=== PATIENT | female | born 1930 | race Caucasian/White ===

== ENCOUNTER 2016-07-31 13:00 | Inpatient (IN) | payer MEDICARE, BC ==
[~2016-07-31] VITALS: Ht 170.2 cm; Wt 70.3 kg
[~2016-07-31 13:00] MED LIST: ACET-2605 PO; ESCI20TA PO; HYDR-3976 PO; LEVO750T21 PO; LORA2VIA32 PO; PANT40VI IV; RISP1SOL5 PO; Zolpidem Tartrate PO
[2016-07-31 13:21] LABS: BASOPHILS # (AUTO) 0.1 /CMM (0.0-0.2); BASOPHILS % (AUTO) 0.7 % (0.0-2.0); EOSINOPHILS # (AUTO) 0.3 /CMM (0.0-0.7); EOSINOPHILS % (AUTO) 3.5 % (0.0-6.0); HEMATOCRIT 44 % (33-45); HEMOGLOBIN 13.1 g/dL (11.5-14.8); LYMPHOCYTES # (AUTO) 1.8 /CMM (0.8-4.8); LYMPHOCYTES % (AUTO) 20.7 % (20.0-44.0); MEAN CORPUSCULAR HEMOGLOBIN 27 PG (26.0-33.0); MEAN CORPUSCULAR HGB CONC 30 g/dl (31.0-36.0); MEAN CORPUSCULAR VOLUME 89 fL (82-100); MONOCYTES # (AUTO) 0.7 /CMM (0.1-1.30); MONOCYTES % (AUTO) 8.5 % (2.0-12.0); NEUTROPHILS # (AUTO) 5.6 /CMM (1.8-8.9); NEUTROPHILS % (AUTO) 66.6 % (43.0-81.0); PLATELET COUNT (AUTO) 209 /CMM (150-450); RDW COEFFICIENT OF VARIATION 12.8 (11.5-15.0); RED BLOOD CELL COUNT(AUTO) 4.94 MIL/uL (4.0-5.2); WHITE BLOOD COUNT (AUTO) 8.5 K/uL (4.3-11.0)
--- NOTE | 2016-07-31 13:25 | NUR ---
PATIENT IS NON VERBAL, BIB RA S/P SYNCOPAL EPISODE AT [facility] TG=661 MG/DL IN THE FIELD. RESP IS EVEN AND UNLABORED WITH NAD NOTED. SKIN IS WARM AND NON DIAPHORETIC. PLACED ON MONITOR AND WILL CONTINUOUSLY MONITOR THE PATIENT. AWAITING MD FOR EVAL.
[2016-07-31 13:31] LABS: CALCIUM, SERUM 8.6 mg/dL (8.5-10.1); CARBON DIOXIDE 28 mmol/L (21-32); CHLORIDE 107 mmol/L (98-107); CREATININE 0.8 mg/dL (0.6-1.3); GLUCOSE 129 mg/dL (74-106); POTASSIUM 3.7 mmol/L (3.5-5.1); SODIUM SERUM 142 mmol/L (136-145); UREA NITROGEN, BLOOD 20 mg/dL (7-18)
[2016-07-31] MEDS ORDERED: GUAI100S11 PO (13:31)
[2016-07-31] MEDS ORDERED: POLY17PO4 PO (13:31)
[2016-07-31] MEDS ORDERED: ATRO2DRO4 SL (13:31)
[2016-07-31] MEDS ORDERED: PROC25SU2 RC (13:31)
[2016-07-31] MEDS ORDERED: ACET650S11 RC (13:31)
[2016-07-31] MEDS ORDERED: LOPE-156 PO (13:31)
[2016-07-31] MEDS ORDERED: CHOL100044 PO (13:31)
[2016-07-31] MEDS ORDERED: ESCI5SOL PO (13:31)
[2016-07-31] MEDS ORDERED: BISA10SU8 RC (13:31)
[2016-07-31] MEDS ORDERED: MORP100S3 SL (13:31)
[2016-07-31 13:35] LABS: INR 0.99 (0.87-1.13); PROTHROMBIN TIME 10.3 SECS (9.5-12.7)
[2016-07-31 13:37] LABS: ALANINE AMINOTRANSFERASE 19 U/L (12-78); ALBUMIN 2.5 g/dL (3.4-5.0); ALKALINE PHOSPHATASE 78 U/L (46-116); ASPARTATE AMINOTRANSFERASE 14 U/L (15-37); BILIRUBIN,DIRECT 0.1 mg/dL (0.0-0.2); BILIRUBIN,TOTAL 0.3 mg/dL (0.2-1.0); TOTAL PROTEIN, SERUM 6.1 g/dL (6.4-8.2)
[2016-07-31 13:39] LABS: TROPONIN I < 0.017 ng/mL (0.00-0.056)
[2016-07-31] MEDS ORDERED: IV NS 0.9% 250 ML IV ONE (14:12)
[2016-07-31 14:17] LABS: APPEARANCE,URINE Slightly Cloudy (CLEAR); BILIRUBIN,URINE Negative (NEGATIVE); BLOOD, URINE Trace-intact Ery/uL (NEGATIVE); COLOR,URINE Yellow (YELLOW); KETONES,URINE Negative (NEGATIVE); LEUKOCYTE ESTERASE ,URINE Small (NEGATIVE); NITRITE, URINE Positive (NEGATIVE); PROTEIN,URINE Negative (NEGATIVE); UGLUCOSE Negative (NEGATIVE)
[2016-07-31 14:21] LABS: RBC,URINE 0-2 /HPF (0-2); WBC,URINE 20-40 /HPF (0-3)
[2016-07-31 14:22] LABS: ADD URINE CULTURE YES; BACTERIA,URINE Moderate /HPF (None Seen); SQUAMOUS EPITHELIAL CELL,UR Few /HPF (None Seen)
[2016-07-31] MEDS ORDERED: IV NS 0.9% 250 ML BAG IV ONE (14:30)
--- NOTE | 2016-07-31 14:30 | NUR ---
Patient is resting comfortably in bed with eyes closed. Easily aroused. VSS
--- NOTE | 2016-07-31 15:16 | NUR ---
REPORT GIVEN TO JADON CASTRO FOR ERICA TELE [id number]
[2016-07-31 16:00] VITALS: BP 125/79
--- NOTE | 2016-07-31 16:10 | NUR ---
TELE/RN AM NOTE ADMITTED 86 Y/O FEMALE, FROM ER, VIA GURNEY TO RM # [id number], WITH ADMISSION DX; SYNCOPE, HX: GERD, HTN, DEMENTIA, UNDER CARE OF DR. VILLANUEVA. PATIENT IS AWAKE, ALERT X1 TO NAME, WITH UNCLEAR SPEECH. NO SOB, NO S/SX OF PAIN, OR DISTRESS, OXYGEN IN PLACE DELIVERING 2L/M VIA N/C, TOLERATING WELL. IV LINE ON LEFT HAND IS INTACT, PATENT. PATIENT IS BED BOUND ALMOST 2 YEARS AND [facility] RESIDENT. HAS CONSERVATOR INVOLVED IN HER CASE. ADMISSION HISTORY OBTAINED FROM [employer] [employer] (LEILA). FULL BODY ASSESSMENT DONE, NOTED WITH LEFT BUTTOCK SCRATCH LIKE REDNESS, NO BLEEDING, AND MULTIPLE DEFUSED BODY MOLES, DRY, INTACT. PATIENT DENIES PAIN, INCONTINENT B/B. ORIENTED PATIENT THE ROOM, CALL LIGHT SYSTEM, NEEDS MET, KEPT CLEAN, COMFORTABLE, HOB ELEVATE, BED IN LOW POSITION, 2SR UP FOR SAFETY, WITH CALL LIGHT WITHIN EASY REACH, WILL CONTINUE TO MONITOR PATIENT ACCORDINGLY.
[2016-07-31] MEDS ORDERED: ACETAMINOPHEN 325 MG TABLET PO PRN (17:30)
[2016-07-31] MEDS ORDERED: HYDROCODONE/APAP 5/325MG 1 EACH TABLET PO PRN (17:30)
[2016-07-31] MEDS ORDERED: ONDANSETRON HCL/PF 4 MG/2 ML VIAL IVP PRN (17:30)
[2016-07-31] MEDS ORDERED: MAG HYDROX/AL HYDROX/SIMETH 30 ML UDC PO PRN (17:30)
--- NOTE | 2016-07-31 19:30 | NUR ---
HOUSING COURT JUDGE NOTE: PATIENT RESTING IN BED, NO ACUTE DISTRESS NOTED. BREATHING EVEN AND UNLABORED, NO SOB NOTED. TELE READING SR 60. IV TO LEFT HAND IN PLACE. BED LOCKED AND IN LOWEST POSITION, CALL LIGHT IN REACH. WILL CONTINUE TO MONITOR.
[2016-07-31 20:00] VITALS: BP 133/63
[2016-07-31] MEDS ORDERED: IV SET PRIMARY PUMP SET 1 EA INFUS.SET MC ONE (20:55)
[2016-07-31] MEDS ORDERED: SECONDARY IV SET 1 EA INFUS.SET MC ONE (20:56)
[2016-07-31] MEDS: CEFTRIAXONE 1 G in IV D5W 50 ML IV SCH (21:00)
[2016-07-31] MEDS: IV NS 0.9% 1,000 ML IV PRN (21:01)
[2016-07-31] MEDS: ENOXAPARIN SODIUM 30 MG/0.3 ML DISP.SYRIN SQ SCH (21:01)
[2016-07-31] MEDS ORDERED: MAGNESIUM HYDROXIDE 30 ML UDC PO PRN (22:00)
[2016-07-31] MEDS ORDERED: ZOLPIDEM TARTRATE 5 MG TABLET PO PRN (22:00)
[2016-08-01 00:51] VITALS: BP 124/69
--- NOTE | 2016-08-01 02:45 | NUR ---
TOOL AND PRODUCTION PLANNER NOTE: PATIENT SLEEPING IN BED, NO ACUTE DISTRESS NOTED. BREATHING EVEN AND UNLABORED, NO SOB NOTED. BED LOCKED AND IN LOWEST POSITION, CALL LIGHT IN REACH. WILL CONTINUE TO MONITOR.
--- NOTE | 2016-08-01 06:05 | NUR ---
FLOWER CUTTER NOTE: PATIENT RESTING IN BED, NO ACUTE DISTRESS NOTED. BREATHING EVEN AND UNLABORED, NO SOB NOTED. TELE READING SR 64. IV TO LEFT HAND GOT ACCIDENTALLY PULLED OUT. WILL TRY TO START A NEW IV. BED LOCKED AND IN LOWEST POSITION, CALL LIGHT IN REACH. WILL ENDORSE TO DAY NURSE TO CONTINUE WITH PLAN OF CARE.
[2016-08-01 06:56] LABS: BASOPHILS % (AUTO) 0.7 % (0.0-2.0); EOSINOPHILS # (AUTO) 0.1 /CMM (0.0-0.7); EOSINOPHILS % (AUTO) 2.3 % (0.0-6.0); HEMATOCRIT 37 % (33-45); HEMOGLOBIN 12.7 g/dL (11.5-14.8); LYMPHOCYTES # (AUTO) 1.1 /CMM (0.8-4.8); LYMPHOCYTES % (AUTO) 17.5 % (20.0-44.0); MEAN CORPUSCULAR HEMOGLOBIN 30 PG (26.0-33.0); MEAN CORPUSCULAR HGB CONC 34 g/dl (31.0-36.0); MEAN CORPUSCULAR VOLUME 89 fL (82-100); MONOCYTES # (AUTO) 0.6 /CMM (0.1-1.30); MONOCYTES % (AUTO) 9.7 % (2.0-12.0); NEUTROPHILS # (AUTO) 4.5 /CMM (1.8-8.9); NEUTROPHILS % (AUTO) 69.8 % (43.0-81.0); PLATELET COUNT (AUTO) 172 /CMM (150-450); RDW COEFFICIENT OF VARIATION 13.2 (11.5-15.0); RED BLOOD CELL COUNT(AUTO) 4.19 MIL/uL (4.0-5.2); WHITE BLOOD COUNT (AUTO) 6.5 K/uL (4.3-11.0)
[2016-08-01 06:57] VITALS: BP 122/70
--- NOTE | 2016-08-01 07:10 | NUR ---
BOTTOM PRESSER OPENING RECEIVED PATIENT A/OX1 AWAKE TO DEEP TOUCH. PATIENT CURRENTLY HAS NO IV IN PLACE PER RN WAS PULLED OUT ON ACCIDENT. WILL TRY AND START A NEW IV FOR PATIENT. PATIENT DENIES PAIN, SOB DIFFICULTY BREATHING OR SOB. RESPIRATIONS EQUAL AND UNLABORED. ON 2LPM NC WILL CHECK PATIENT ON ROOM AIR. PATIENT PLACED IN POSITION OF COMFORT AND REPOSITIONED. OFFLOADED HEELS AND ELBOWS. PATIENT SHAKES HEAD NO TO NO NEEDS. CALL LIGHT IN REACH, BED LOWERED AND LOCKED, RAILS UPX3 FOR SAFETY WITH BED ALARM ON. WILL ROUND Q2H OR LESS PER NEEDS
[2016-08-01 07:12] LABS: ALBUMIN 2.2 g/dL (3.4-5.0); BILIRUBIN,TOTAL 0.3 mg/dL (0.2-1.0); CALCIUM, SERUM 8.2 mg/dL (8.5-10.1); CREATININE 0.6 mg/dL (0.6-1.3); MAGNESIUM 1.8 mg/dL (1.8-2.4); PHOSPHORUS 3.8 mg/dL (2.5-4.9); POTASSIUM 4.1 mmol/L (3.5-5.1); TOTAL PROTEIN, SERUM 5.4 g/dL (6.4-8.2)
[2016-08-01] MEDS: PANTOPRAZOLE 40 MG TABLET.DR PO SCH (07:30)
[2016-08-01 08:00] VITALS: BP 120/69
[2016-08-01] MEDS: Z GUARD REMEDY 2 OZ OINT TP PRN ×2 (08:43→18:10)
[2016-08-01 09:20] VITALS: BP_SYST 107; BP_SYST 113; BP_DIAS 65; BP_DIAS 67
--- NOTE | 2016-08-01 09:20 | NUR ---
INTEGRITY ENGINEER NOTES GETTING PATIENT ORTHOSTATIC PER MD MOORE. PATIENT IS MAX ASSIST TO SIT UP. UNABLE TO HOLD SELF UP IN SEATED POSITION. UNABLE TO STAND UP
[2016-08-01 09:30] LABS: THYROID STIMULATING HORMONE 2.599 uIU/mL (0.358-3.74)
--- NOTE | 2016-08-01 11:43 | NUR ---
MS RN NOTES PER DR MARIEE ORDER CAROTID DUPLEX FOR PATIENT
[2016-08-01 16:00] VITALS: BP 100/64
[2016-08-01] MEDS ORDERED: BOOST PLUS FOOD-CHOCLATE 237 ML BOX PO SCH (17:00)
[2016-08-01] MEDS: IV NS 0.9% 1,000 ML IV PRN (18:10)
[2016-08-01] MEDS: CEFTRIAXONE 1 G in IV D5W 50 ML IV SCH (18:10)
--- NOTE | 2016-08-01 18:44 | NUR ---
MS RN CLOSING PATIENT STABLE NO COMPLICATIONS NO COMPLAINTS. DENIES PAIN AT THIS TIME. RESPIRATIONS EQUAL AND UNLABORED. PATIENT TURNED Q2H AND HEELS AND ELBOWS OFFLOADED THROUGHOUT THE DAY. PATIENT IN POSITION OF COMFORT AND CALL LIGHT IN REACH, BED LOWERED AND LOCKED, RAILS UPX3, IVF RUNNING ORDERED, AND BED ALARM ON. WILL ENDORSE TO RN FOR ERICA
--- NOTE | 2016-08-01 19:20 | NUR ---
MS/RN OPENING NOTES PT ASLEEP, RESTING COMFORTABLY IN BED. EASILY AROUSABLE TO NAME. A/OX1. ON ROOM AIR, NO S/S OF SOB OR RESPIRATORY DISTRESS NOTED. BREATHING EVEN AND UNLABORED. NO S/S OF PAIN NOTED. IV TO RIGHT FA PATENT AND INTACT RUNNING IVF ORDERED. NO S/S OF REDNESS OF INFILTRATION NOTED. BED IN LOW/LOCKED POSITION WITH CALL LIGHT. BED RAILS UPX3. WILL CONTINUE TO MONITOR
[2016-08-01 20:00] VITALS: BP 101/56
[2016-08-01] MEDS: ENOXAPARIN SODIUM 30 MG/0.3 ML DISP.SYRIN SQ SCH (21:02)
--- NOTE | 2016-08-01 21:30 | NUR ---
MS/RN NOTES PT'S ARMORER TECHNICIAN LEILA BILL CALLED FOR A BRIEF UPDATE AND WANTED TO PROVIDE ME WITH DETAILS ABOUT THE PT (E.G., PT IS A FEEDER AND ENJOYS APPLESAUCE, ENCOURAGE BOOST SUPPLEMENT, AND PT MAY BECOME COMBATIVE IF PERSONAL SPACE IS INVADED). CM IS AVAILABLE / IF NEEDED.
--- NOTE | 2016-08-02 03:22 | NUR ---
MS/RN NOTES PT INTERMITTENTLY SLEEPING. BREATHING EVEN AND UNLABORED. NO S/S OF DISTRESS. TURNED/REPOSITIONED Q2H AND OFFLOADED EXTREMITIES. WILL CONTINUE TO MONITOR
--- NOTE | 2016-08-02 06:39 | NUR ---
MS/RN CLOSING NOTES PT AWAKE, A/OX1, MOSTLY NON-VERBAL (BASELINE PER PT'S NUT PROCESS HELPER) BUT STATED SOME WORDS THROUGHOUT SHIFT. ON ROOM AIR, NO SOB OR DISTRESS NOTED. NO S/S OF PAIN, NO FACIAL GRIMACING. IV TO RFA PATENT AND INTACT RUNNING IVF ORDERED. EXTREMITIES OFFLOADED THROUGHOUT SHIFT. TURNED AND REPOSITIONED Q2H, SKIN CARE PROVIDED AND Z GUARD APPLIED. MADE PT COMFORTABLE THROUGHOUT SHIFT. BED IN LOW/LOCKED POSITION WITH CALL LIGHT IN REACH. BED RAILS UPX3 AND ALARM ON. WILL ENDORSE TO AM SHIFT ERICA.
[2016-08-02 08:00] VITALS: BP 118/73
--- NOTE | 2016-08-02 08:00 | NUR ---
MS RN NOTE PT. IS SLEEPING. NO SOB AT THIS TIME. VS STABLE. CALL LIGHT WITHIN REACH. SIDE RAILS UP. MONITOR CLOSELY.
[2016-08-02] MEDS: PANTOPRAZOLE 40 MG TABLET.DR PO SCH (08:29)
[2016-08-02] MEDS: IV NS 0.9% 1,000 ML IV PRN (08:29)
--- NOTE | 2016-08-02 15:30 | NUR ---
[facility] THEN INFORMED DISCHARGE. TOOK PICTURES. PT. WILL BE DISCHARGED FROM [facility].
--- NOTE | 2016-08-02 16:40 | NUR ---
[facility].
== END 2016-08-02 16:45 | DRG 73 ==
LOC: ER 13:02 → TELE 15:26 → MED 08-01 11:22
PROVIDERS: ADMIT Internal Medicine; ATTEND Internal Medicine
DX: G90.8 Other disorders of autonomic nervous system (principal); G93.41 Metabolic encephalopathy; N39.0 Urinary tract infection, site not specified; R55 Syncope and collapse; Z66 Do not resuscitate; F03.90 Unspecified dementia, unspecified severity, without behavioral disturbance, psychotic disturbance, mood disturbance, and anxiety; I11.9 Hypertensive heart disease without heart failure; F32.9 Major depressive disorder, single episode, unspecified; D63.8 Anemia in other chronic diseases classified elsewhere; E78.5 Hyperlipidemia, unspecified; H40.9 Unspecified glaucoma
CPT/HCPCS: 36415; 71010-TC; 80048-TC; 80053-TC; 80061-TC; 80076-TC; 81000-TC; 82728-TC; 83540-TC; 83735-TC; 84100-TC; 84439-TC; 84443-TC; 84484-TC; 85025-TC; 85730-TC; 87081-TC; 87086-TC; 87186-TC; 93307-TC; 93880-TC; A4606; J0696; J1650; J7030; J7050; J7060; Z7610

== ENCOUNTER 2018-10-25 17:33 | Emergency (ER) | payer BC, MEDICARE ==
[~2018-10-25] VITALS: Ht 165.1 cm; Wt 73.5 kg
[~2018-10-25 17:33] MED LIST changes: -ACET-2605 PO; +ACET650S11 RC; +ATRO2DRO4 SL; +BISA10SU11 RC; +CHOL100044 PO; -ESCI20TA PO; +ESCI5SOL PO; +GUAI100S11 PO; -HYDR-3976 PO; -LEVO750T21 PO; +LOPE-156 PO; -LORA2VIA32 PO; +LORA2VIA33 PO; +MORP100S3 SL; -PANT40VI IV; +POLY17PO4 PO; +PROC25SU2 RC; -Zolpidem Tartrate PO
--- NOTE | 2018-10-25 17:40 | NUR ---
[id number] FRM SUNRISE, UNWITNESSED FALL FROM THE BED W/ HEAD WEDGE BETWEEN BED AND TABLE. KEPT PATIENT COMFORTABLE, ATTACHED TO THE MONITOR.
[2018-10-25] MEDS ORDERED: DOCU-141 PO (18:03)
[2018-10-25] MEDS ORDERED: DEXT1DRO3 OP (18:03)
[2018-10-25] MEDS ORDERED: FURO-145 PO (18:03)
[2018-10-25] MEDS ORDERED: MAGN400O6 PO (18:03)
[2018-10-25] MEDS ORDERED: POTA10TA15 PO (18:03)
[2018-10-25] MEDS ORDERED: ONDA4TAB11 PO (18:03)
[2018-10-25 18:11] LABS: BASOPHILS # (AUTO) 0.1 /CMM (0.0-0.2); EOSINOPHILS % (AUTO) 4.6 % (0.0-6.0); HEMATOCRIT 44 % (33-45); HEMOGLOBIN 14.2 g/dL (11.5-14.8); LYMPHOCYTES # (AUTO) 1.2 /CMM (0.8-4.8); LYMPHOCYTES % (AUTO) 18.7 % (20.0-44.0); MEAN CORPUSCULAR HGB CONC 33 g/dl (31.0-36.0); MEAN CORPUSCULAR VOLUME 92 fL (82-100); MONOCYTES # (AUTO) 0.7 /CMM (0.1-1.30); MONOCYTES % (AUTO) 10.5 % (2.0-12.0); NEUTROPHILS # (AUTO) 4.1 /CMM (1.8-8.9); NEUTROPHILS % (AUTO) 65.2 % (43.0-81.0); PLATELET COUNT (AUTO) 170 /CMM (150-450); RED BLOOD CELL COUNT(AUTO) 4.73 MIL/uL (4.0-5.2); WHITE BLOOD COUNT (AUTO) 6.3 K/uL (4.3-11.0)
[2018-10-25 18:18] LABS: CALCIUM, SERUM 8.7 mg/dL (8.5-10.1); CARBON DIOXIDE 28 mmol/L (21-32); CHLORIDE 113 mmol/L (98-107); CREATININE 0.7 mg/dL (0.6-1.3); GLUCOSE 108 mg/dL (74-106); POTASSIUM 4.8 mmol/L (3.5-5.1); SODIUM SERUM 146 mmol/L (136-145); UREA NITROGEN, BLOOD 37 mg/dL (7-18)
--- NOTE | 2018-10-25 19:07 | NUR ---
[facility]LDON TO [facility] [id number] TRIP #[id number]
--- NOTE | 2018-10-25 19:34 | NUR ---
REPORT GIVEN TO MARTHA OSBORN
--- NOTE | 2018-10-25 21:06 | NUR ---
JENNIFER MACIEL PT'S CONSERVATOR IS AT THE BEDSIDE.
--- NOTE | 2018-10-25 21:06 | NUR ---
AMBULANCE ARRIVED AND REPORT GIVEN TO EMT. COPY OF LABS AND CT/XRAY GIVEN. Patient discharged to home in stable condition. Written and verbal after care instructions given. Patient verbalizes understanding of instruction. VSS.
[2018-10-25 21:15] VITALS: BP 110/57
== END 2018-10-25 21:16 | disposition home or self-care (01) ==
LOC: ER 17:40
DX: S00.211A Abrasion of right eyelid and periocular area, initial encounter (principal); S09.8XXA Other specified injuries of head, initial encounter; R07.89 Other chest pain; F03.90 Unspecified dementia, unspecified severity, without behavioral disturbance, psychotic disturbance, mood disturbance, and anxiety; I10 Essential (primary) hypertension; K21.9 Gastro-esophageal reflux disease without esophagitis; W06.XXXA Fall from bed, initial encounter; Y93.89 Activity, other specified; Y92.89 Other specified places as the place of occurrence of the external cause; Y99.8 Other external cause status
CPT/HCPCS: 36415; 70450-TC; 71045-TC; 80048-TC; 85025-TC